=== PATIENT | female | born 1985 | race Caucasian/White ===

== ENCOUNTER → 2019-08-08 10:54 | Outpatient (CLI) | payer OTHER, SELFPAY ==
--- NOTE | 2019-08-08 11:09 | DI.RAD.S_ITS ---
PROCEDURE: XR HIP W PEL IF DONE RT 2V INDICATIONS: limited external rotation, pelvic pain, impingement? TECHNIQUE: AP pelvis with lateral view(s) of the right hip(s). COMPARISON: None. FINDINGS: Bones: No fractures or dislocations. Pelvic ring appears intact. No suspicious bony lesions. [id number] right hip degeneration with prominent subchondral cyst in the right acetabulum. Mild left hip joint degeneration Soft tissues: The visualized bowel gas pattern is normal. No suspicious soft tissue calcifications. IUD incidentally noted. IMPRESSION: Moderate-severe right hip degeneration Mild left hip degeneration Dictated by: Paul Osullivan M.D. on 08/08/2019 at 11:53 Approved by: Paul Osullivan M.D. on 08/08/2019 at 11:54
[2019-08-08 12:04] LABS: Alanine Aminotransferase 27 IU/L (9-52); Albumin 4.4 g/dL (3.5-5.0); Albumin Globulin Ratio 1.6 (1.0-2.8); Alkaline Phosphatase 75 U/L (38-126); Aspartate Aminotransferase 30 IU/L (14-36); Bilirubin Total 0.6 mg/dL (0.2-1.3); Blood Urea Nitrogen 14 mg/dL (7-17); Calcium 9.5 mg/dL (8.4-10.2); Carbon Dioxide 25 mmol/L (22-32); Chloride 105 mmol/L (98-107); Cholesterol 166 mg/dL (140-199); Estimated Glomerular Filt Rate > 60.0 mL/min (>60); Globulin 2.8 g/dL (1.7-4.1); Glucose 90 mg/dL (70-100); HDL Cholesterol 40 mg/dL (40-60); HEMOLYSIS 50 (0-50); LDL Cholesterol Calculated 113 mg/dL (<100); Potassium 4.4 mmol/L (3.4-5.1); Sodium 140 mmol/L (137-145); Total Protein 7.2 g/dL (6.3-8.2); Triglycerides 64 mg/dL (35-150)
== END ==
PROVIDERS: PCP Family Medicine; Visit Provider Family Medicine
DX: E66.9 Obesity, unspecified (principal); R10.31 Right lower quadrant pain; G89.29 Other chronic pain
CPT/HCPCS: 36415; 73502; 80053; 80061; 83036

== ENCOUNTER → 2019-09-02 13:38 | Outpatient (CLI) | payer OTHER, SELFPAY ==
--- NOTE | 2019-09-02 13:40 | DI.RAD.S_ITS ---
PROCEDURE: [place] HIP INJECTION MR/CT RT INDICATIONS: Hip pain. TECHNIQUE: The indications, alternatives, benefits, risks, and complications of the procedure were explained to the patient. Written informed consent was obtained and placed in the chart. The hip was examined fluoroscopically with the legs fixed in slight internal rotation, and a site for needle placement chosen for entry into the hip joint from an anterior approach. Care was taken to locate the common femoral artery and vein beforehand. The skin was prepped and draped in a sterile fashion, and 1% Lidocaine infiltrated from skin down to joint capsule. A spinal needle was inserted into the joint, and a small amount of iodinated contrast media injected to confirm intra-articular placement of the needle tip. This was followed by approximately 10 mL dilute solution of a gadolinium containing MR contrast agent. The needle was removed and a dressing was applied. The patient was given postprocedural instructions and sent to the MR suite for imaging. FINDINGS: A single fluoroscopic spot image demonstrates intra-articular location of injected iodinated contrast. IMPRESSION: Successful fluoroscopically guided administration of dilute Gadolinium solution into the hip joint for MR arthrogram. Dictated by: Greg Anderson M.D. on 09/02/2019 at 16:57 Approved by: Greg Anderson M.D. on 09/02/2019 at 16:58
--- NOTE | 2019-09-02 13:40 | DI.MRI.S_ITS ---
PROCEDURE: MR HIP RT W CON INDICATIONS: severe degeneration of right hip as seen on X-ray TECHNIQUE: After the administration of 10 mL of dilute intra-articular Gadolinium contrast, coronal STIR of the bony pelvis; coronal and oblique axial T1 spin echo with fat saturation, axial T2 fast spin echo with fat saturation, sagittal T1 spin echo with and without fat saturation of the involved hip. COMPARISON: [facility], [place], [place] HIP INJECTION MR/CT RT, 09/02/2019, 13:57. [facility], [place], XR HIP W PEL IF DONE RT 2V, 08/08/2019, 11:18. FINDINGS: Image quality: Diagnostic. Bones and joints: No acute fracture, dislocation, suspicious osseous lesion, or evidence of avascular necrosis of the right hip is present. There are moderate to severe degenerative changes of the right hip joint with prominent joint space narrowing, extensive chondromalacia, mild bony remodeling, areas of degenerative cystic change (best appreciated involving the superior acetabulum), and moderate sized marginal osteophytes. There is adequate distention of the right hip joint with the injected contrast. The alpha angle of the right femoral head measures less than 55?. Lateral elongation of the superior acetabulum is present. No definite loose intra-articular joint bodies are appreciated. Remainder of the imaged osseous structures of the pelvis demonstrate no acute fractures or suspicious osseous lesions. There are [id number]-wo-ibqzsfey degenerative changes of the left hip and sacroiliac joints. Labrum: No normal labral tissue is evident along the superior aspect of the joint. No large para labral cysts are appreciated. Tendons and ligaments: The ligamentum teres probably is intact, but is not well evaluated. The distal right gluteus medius and gluteus minimus tendons appear to be within normal limits. The proximal hamstring and distal iliopsoas tendons also appear to be within normal limits. No significant fluid is contained within the greater trochanteric bursa. Soft tissues: Visualized muscles demonstrate normal bulk and internal signal. Quadratus femoris muscle demonstrates no internal edema to suggest ischiofemoral impingement. The proximal sciatic neurovascular bundle appears normal adjacent to the hamstring tendons. No free pelvic fluid. Bladder wall thickness is normal. Genitourinary structures and bowel loops appear normal where visualized. An intrauterine contraceptive device is positioned within the endometrial cavity. IMPRESSION: 1. Moderate to severe degenerative changes of the right hip. 2. 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 3. No normal labral tissue is evident, which is felt to be torn. 4. Tkwb-ye-esaemsiv degenerative changes involving other pelvic joints as described. Dictated by: Glenn Casey M.D. on 09/02/2019 at 16:17 Approved by: Glenn Casey M.D. on 09/02/2019 at 16:22
== END ==
PROVIDERS: PCP Family Medicine; Visit Provider Family Medicine
DX: M16.11 Unilateral primary osteoarthritis, right hip (principal); M25.551 Pain in right hip; M94.251 Chondromalacia, right hip
CPT/HCPCS: 27093; 73722; 77002

== ENCOUNTER → 2020-03-16 10:30 | Outpatient (CLI) | payer OTHER, SELFPAY | PROVIDERS: PCP Family Medicine; Visit Provider Family Medicine | DX: L02.32 Furuncle of buttock (principal) | CPT/HCPCS: 87070; 87075; 87077; 87147; 87205 ==